=== PATIENT | female | born 1975 | race Caucasian/White ===

== ENCOUNTER → 2017-08-28 | Outpatient (CLI) | payer OTHER ==
[~2017-08-28] MED LIST: NORCO 325 MG-51 TAB PO; ZOFRAN 4MG T4 MG/TAB PO
== END ==
LOC: MC.RAD 09:36
DX: Z12.31 Encounter for screening mammogram for malignant neoplasm of breast (principal)

== ENCOUNTER → 2018-10-29 | Outpatient (CLI) | payer BC | LOC: MC.RAD 08:42 | DX: Z12.31 Encounter for screening mammogram for malignant neoplasm of breast (principal) ==

== ENCOUNTER → 2019-08-17 | Outpatient (CLI) | payer BC | LOC: MC.RAD 11:11 | DX: Z12.31 Encounter for screening mammogram for malignant neoplasm of breast (principal) ==

== ENCOUNTER → 2020-10-22 | Outpatient (CLI) | payer BC | LOC: MC.RAD 10-05 13:30 | DX: Z12.31 Encounter for screening mammogram for malignant neoplasm of breast (principal) ==

== ENCOUNTER → 2021-11-01 | Outpatient (CLI) | payer BC | LOC: MC.RAD 07:30 | DX: Z12.31 Encounter for screening mammogram for malignant neoplasm of breast (principal) ==

== ENCOUNTER → 2022-11-21 | Outpatient (CLI) | payer BC | LOC: MC.RAD 08:54 | DX: Z12.31 Encounter for screening mammogram for malignant neoplasm of breast (principal) ==